=== PATIENT | male | born 2000 ===

== ENCOUNTER 2025-04-19 18:32 | Observation (INO) | payer OTHER, SELFPAY ==
[2025-04-19] VITALS (13 sets, daily range): BP systolic 97–124; BP diastolic 54–76; PULSE 56–117; RESP 12–18; TEMP 36.6; O2SAT 96–100; BMI 18.1
--- NOTE | ~2025-04-19 | CT_ITS ---
EXAMINATION: CT abdomen pelvis w con DATE: 04/19/2025 19:53 INDICATION: Constipation. Developmental delay. TECHNIQUE: Computed tomography (CT) of the abdomen and pelvis was performed with 100 cc of IV contrast intravenous contrast. Automated exposure control and iterative reconstruction technique were employed. The dose-length product was 227.66 mGy-cm. COMPARISON: None previous available. FINDINGS: Lung bases do not show any acute findings. No focal lesions of the liver and the spleen. No acute findings of the pancreas and kidneys. No evidence of small bowel obstruction. Diffuse fecal impaction of the colon. Urinary bladder is significantly distended. No focal inflammatory changes. Appendix is not distinctly visible. IMPRESSION: 1. No definite acute findings in the upper abdomen and pelvis. 2. Significant diffuse fecal impaction of the colon. Distended urinary bladder. Reviewed, dictated and finalized at location T. ATIONAL THERAPY TEACHER
--- NOTE | ~2025-04-19 | CT_ITS ---
EXAMINATION: CT brain wo con DATE: 04/19/2025 19:52 INDICATION: Seizure. TECHNIQUE: Computed tomography (CT) of the head was performed without intravenous contrast. The mA was adjusted according to patient size. Iterative reconstruction technique was employed. The dose-length product was 605.33 mGy-cm. COMPARISON: CT head dated 09/21/2022. FINDINGS: No acute intracranial bleed. Mild prominence of the lateral ventricle are noted similar in appearance to previous study. Body of the lateral ventricle measured 21 mm in transverse diameter on each side. Mildly prominent third ventricle. No midline shift. In the posterior fossa, Chiari I malformation is noted also seen on previous examination. No acute bony lesions. IMPRESSION: 1. No acute intracranial lesions. 2. 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 This finding is unchanged from prior study of 09/21/2022. Reviewed, dictated and finalized at location T. FEN HOUSE SUPERVISOR IMPRESSION: 1. No acute intracranial lesions. 2. 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 This finding is unchanged from prior study of 09/21/2022.
--- NOTE | ~2025-04-19 | MR_ITS ---
EXAMINATION: MR brain/brain stem wo con DATE: 04/20/2025 15:23 INDICATION: Seizure TECHNIQUE: Magnetic resonance imaging (MRI) of the brain and brainstem was performed without intravenous contrast. COMPARISON: Previous head CT exams from September 21, 2022, and April 19, 2025. FINDINGS: Several of the sequences are severely degraded by motion artifact. No acute ischemic event, mass or hemorrhage. Ventriculomegaly involving the lateral ventricles unchanged from the recent CT exam. The third and fourth ventricles do not appear significantly enlarged. Chiari I malformation noted with the cerebellar tonsils extending approximately 6 mm below the foramen magnum. No gross abnormalities seen in the paranasal periorbital and calvarial structures. Vascular flow voids appear patent at the skull base. Other than the Chiari 1 malformation, brainstem and cerebellum appear normal. IMPRESSION: 1. Mild ventriculomegaly similar to the previous CT exams. The fourth ventricle does not appear significantly enlarged. Query if patient has any known history of aqueductal stenosis. 2. Noncontrast exam limited as above. Reviewed, dictated and finalized at location A. PULLER
--- OUTSIDE RECORDS SUMMARY | 2025-04-19 18:34 | XMS_ITS | Encounter Summary ---
Author Organization [facility] Address [address] [place] [address] Care Team Providers Care Patient Transportation Driver Name Role Phone Kala Moran MD Primary Care Provider Unavailable Encounter Details Date Type Department Care Team (Late st Contact Info) Description 08/04/2004 Outpatient Historical [facility] [place] [address] 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
--- OUTSIDE RECORDS SUMMARY | 2025-04-19 18:34 | XMS_ITS | Clinical Summary ---
Author Organization [facility] [address] [place] Address [address] [place] [address] Care Team Providers Care Dot Net Architect Name Role Phone Kala Moran MD Primary Care Provider Unavailable Allergies Active Allergy Reactions Criticality Noted Date Comments No Known Allergies 2005 Medications LORazepam (ATIVAN) 0.5 mg tabletIndication s:Autism spectrum disorder,Dental caries Take one tab by mouth 30 mins prior to dental appointment .. 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 Autism spectrum disorder 01/29/2012 Blindness 01/26/2008 Developmental delay 01/26/2008 Short stature for age 0801/26/2008 Well child check 01/25/2008 Resolved Problems Problem Noted Date Diagnosed Date Resolved Date Hearing loss 05/02/2008 06/04/2010 Immunizations Immunization Administration Dates Next Due (ACTHIB/HIBERIX)(2 MOS-5 YRS /6 WKS-4 YRS) HAEMOPHILUS INFLUENZAE TYPE B VACCINE (HIB), PRP-T CONJUGATE, 4 DOSE, 0.5 ML IM 03/24/2002,2001,2001,06/17 (HAVRIX/VAQTA)(12 MO-18 YRS) HEPATITIS A VACCINE 0.5 ML PED/ADOL 2 DOSE, IM 12/08/2006 (INFANRIX)(6 WKS-6 YRS) DIPT HERIA, TETANUS TOXOIDS, AND ACCELLULAR PERTUSSIS VACCINE (DTAP), 0.5 ML IM 12/08/2006,12/11/2002,2001,08/16,2001 (IPOL)(6 WKS AND UP) POLIOVI [place]T VACCINE, INACTIVATED (IPV), 3 DOSE, SUBCUT OR IM 12/08/2006,12/11/2002,2001,08/16,2001 (M-M-R II/PRIORIX)(12 MO UP) MEASLES, MUMPS AND RUBELLA VIRUS VACCINE, 0.5 ML IM/SUBCUT 12/08/2006,03/24/2002 (RECOMBIVAX HB/ENGERIX-B)(0- 19 YRS) HEPATITIS B VACCINE 5 MCG/0.5 ML OR 10 MCG/0.5 ML PED OR ADOL 3 DOSE (PF), IM 12/11/2002,2001,2001 (VARIVAX)(12 MOS UP)VARICELL A VIRUS VACCINE (PF) 0.5 ML, SUB CUT 03/24/2002 Hepatitis A Vaccine Ped Adol IM 2 Dose VF 01/25/2008 Meningococcal A Conjugate Va ccine IM VFC 01/14/2015 Meningococcal A Conjugate Vaccine IM 12/31/2017 Pneumococcal 7-valent conjug ate vaccine IM 03/24/2002 Tdap Vaccine > 7 Yo IM VFC 01/14/2015 Family History Medical History Relation Name Comments Healthy Brother Healthy Father Hypertension Maternal Grandfather Cancer Maternal Grandmother Healthy Maternal Grandmother Healthy Mother Liver Cancer Other 1 matgrtgma not Etho relate d Breast Cancer Other 2 matgrtgma Breast Cancer Other 3 matgrtaunt Relation Name Status Comments Brother Alive Father Alive Maternal Grandfather Alive Maternal Grandmother Alive Mother Alive Other 1 matgrtgma Other 2 matgrtgma Alive Other 3 matgrtaunt Alive Paternal Grandfather Alive Paternal Grandmother Alive Social History Tobacco Use Types Packs/Day Years Used Date Smoking Tobacco: Never Smokeless Tobacco: Never Alcohol Use Standard Drinks/Week Comments Not Asked 0 (1 standard drink = 0.6 oz pur e alcohol) Sex and Gender Information Value Date Recorded Sex Assigned at Not on file 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 Gender Identity Not on file Sexual Orientation Not on file Occupation Industry Job Start Date Job End Date Not on file Not on file Not on file Not on file Last Filed Vital Signs Vital Sign Reading Time Taken Comments Blood Pressure 112/54 09/08/2016 9:45 AM CDT Pulse 87 12/31/2017 2:53 PM CDT Temperature 37.2 C (98.9 F) 12/31/2017 2:53 PM CDT Respiratory Rate - - Oxygen Saturation 79% 12/31/2017 2:53 PM CDT cold hands Inhaled Oxygen Concentration - - Weight 33.6 kg (74 lb) 12/31/2017 2:53 PM CDT Height 145.4 cm (4' 9.25) 12/31/2017 2:53 PM CD T Body Mass Index 15.87 12/31/2017 2:53 PM CDT Plan of Treatment Health Maintenance Due Date Last Done Comments HPV VACCINES (1 - Male 3-dos e series) 02/17/2016 INFLUENZA VACCINE (#1) 2024 DTAP/TDAP/TD VACCINES (7 - T d or Tdap) 01/14/2025 01/14/2015, 12/08/2006, 12/11/2002, Additional history exists HEPATITIS B VACCINES Completed 12/11/2002, 2001, 2001 Insurance [employer] Care Teams Dot Net Architect Relationship Specialty Start Date End Date Kala Moran MD PCP - General Family Practice 01/14/15
--- OUTSIDE RECORDS SUMMARY | 2025-04-19 18:34 | XMS_ITS | Encounter Summary ---
Author Organization [facility] Address 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
--- OUTSIDE RECORDS SUMMARY | 2025-04-19 18:34 | XMS_ITS | Encounter Summary ---
Author Organization [facility] Address 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
--- OUTSIDE RECORDS SUMMARY | 2025-04-19 18:34 | XMS_ITS | Encounter Summary ---
Author Organization [facility] Address 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
--- OUTSIDE RECORDS SUMMARY | 2025-04-19 18:34 | XMS_ITS | Encounter Summary ---
Author Organization [facility] Address [address] [place] [address] Care Team Providers Care Software Support Engineer Name Role Phone Kala Moran MD Primary Care Provider Unavailable Encounter Details Date Type Department Care Team (Late st Contact Info) Description 07/03/2004 Outpatient Historical [facility] Pediatric[facility] [place] [address] [facility] [place] [phone] Oxana Kapoor MD [address] [phone] Social History Tobacco Use Types Packs/Day Years Used Date Smoking Tobacco: Never Assessed Sex and Gender Information Value Date Recorded Sex Assigned at Not on file 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
--- OUTSIDE RECORDS SUMMARY | 2025-04-19 18:34 | XMS_ITS | Encounter Summary ---
Author Organization [facility] Address 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
--- OUTSIDE RECORDS SUMMARY | 2025-04-19 18:34 | XMS_ITS | Encounter Summary ---
Author Organization [facility] Address [address] [place] [address] Care Team Providers Care Rn Family Name Role Phone Kala Moran MD Primary Care Provider Unavailable Encounter Details Date Type Department Care Team (Late st Contact Info) Description 12/08/2006 Outpatient Historical [facility] Pediatrics [place] [address] [facility] [place] [phone] Oxana Kapoor MD [address] [phone] Social History Tobacco Use Types Packs/Day Years Used Date Smoking Tobacco: Never Assessed Sex and Gender Information Value Date Recorded Sex Assigned at Not on file 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 Gender Identity Not on file Sexual Orientation Not on file documented as of this encounter Plan of Treatment Not on file documented as of this encounter Procedures Procedure Name Priority Date/Time Associated Diagnosis Comments CHG POLIOVIRUS IPV VFC 7 12:00 AM CDT CHG DTAP VACCINE <7 YO IM VFC 12/08/2006 12:00 AM CDT CHG HEPATITIS A VACCINE PED ADOL IM 2 DOSE VFC 12/08/2006 12:00 AM CDT documented in this encounter Visit Diagnoses Not on filedocumented in this encounter Care Teams Rn Family Relationship Specialty Start Date End Date Kala Moran MD PCP - General Family Practice 01/14/15 documented as of this encounter
--- OUTSIDE RECORDS SUMMARY | 2025-04-19 18:34 | XMS_ITS | Clinical Summary ---
Author Organization [facility] Address [address] [place] [address] Care Team Providers Care Patent Searcher Name Role Phone Lord Dennys MD, Josr Vega Primary Care Provider Source Comments [facility],non-owned Affiliates and Associated Physician Practices is amultiple site organization consisting of ambulatory clinics and hospital sitesin [place], [place], [place] and [place]. This disclosure is being madepursuant to the Care Everywhere program and may not contain all information available regarding this patient. Last updated 18.[facility] Social History Tobacco Use Types Packs/Day Years Used Date Smoking Tobacco: Never Assessed Sex and Gender Information Value Date Recorded Sex Assigned at Not on file Legal Sex Male 5:44 AM VAULT PERSON Gender Identity Not on file Sexual Orientation Not on file Plan of Treatment Health Maintenance Due Date Last Done Comments HIV SCREENING 02/17/2016 HPV VACCINE (1 - Male 3-dose series) 02/17/2016 HEPATITIS C SCREENING 02/12/2019 DTAP/TDAP/TD VACCINES (1 - Tdap) 02/17/2020 HEPATITIS B VACCINE (1 of 3 - 19+ 3-dose series) 02/17/2020 DEPRESSION SCREENING 05/31/2024 COVID-19 VACCINE ( - 2023-2 5 season) 2025 INFLUENZA VACCINE (#1) 2025 ZOSTER VACCINE (1 of 2) 2051 HIB VACCINE Aged Out No longer eligi ble based on patient's age to complete this topic MENINGOCOCCAL (Group B) VACC INE SHARED DECISION-MAKING Aged Out No longer eligibl e based on patient's age to complete this topic MENINGOCOCCAL GROUPS A/C/Y/W VACCINE Aged Out No longer eligible b ased on patient's age to complete this topic PNEUMOCOCCAL VACCINE Aged Out No long er eligible based on patient's age to complete this topic Care Teams Patent Searcher Relationship Specialty Start Date End Date Josr Saini Jr., MD PCP - General Family Medicine 05/17/13
--- OUTSIDE RECORDS SUMMARY | 2025-04-19 18:34 | XMS_ITS | Encounter Summary ---
Author Organization [facility] Address 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 Gender Identity Not on file Sexual Orientation Not on file documented as of this encounter Plan of Treatment Not on file documented as of this encounter Procedures Procedure Name Priority Date/Time Associated Diagnosis Comments SOMATOMEDIN C Routine 10/07/2004 4:10 PM CDT TSH Routine 10/07/2004 4:10 PM CDT T4 FREE Routine 10/07/2004 4:10 PM CDT CORTISOL LEVEL Routine 10/07/2004 4:10 PM CDT COMPREHENSIVE METABOLIC PANEL Routine 10/07/2004 4:10 PM CDT documented in this encounter Results * SOMATOMEDIN C (10/07/2004 4:10 PM CDT) SOMATOMEDIN C 33 17 - 248 ng/mL INTERFACE SYSTEM Comment: Lab test performed by: [employer] [address] [place] [address] YU CHURCH M.D., PHD. 10/07/2004 4:10 PM CDT us Constant Voulgaropoulos CHEMISTRY ORDERABLES Fin al Result Performing Organization Address City/[facility] de Phone Number INTERFACE SYSTEM Refer to clinic/hospital department * CORTISOL LEVEL (10/07/2004 4:10 PM CDT) CORTISOL LEVEL 17.2 ug/dL INTER FACE SYSTEM Comment: Cortisol Reference Range: 7 - 10 AM: 6.2 - 19.4 ug/dL 4 - 8 PM: 2.3 - 12.3 ug/dL 10/07/2004 4:10 PM CDT us Constant Voulgaropoulos CHEMISTRY ORDERABLES Fin al Result Performing Organization Address City/[facility] Phone Number INTERFACE SYSTEM Refer to clinic/hospital department * TSH (10/07/2004 4:10 PM CDT) TSH 2.05 0.27 - 4.20 uU/mL INTERFACE SYSTEM 10/07/2004 4:10 PM CDT us Constant Voulgaropoulos CHEMISTRY ORDERABLES Fin al Result Performing Organization Address City/[facility] de Phone Number INTERFACE SYSTEM Refer to clinic/hospital department * T4 FREE (10/07/2004 4:10 PM CDT) T4 FREE 1.4 0.9 - 1.7 ng/dL INTERFACE SYSTEM 10/07/2004 4:10 PM CDT us Constant Voulgaropoulos CHEMISTRY ORDERABLES Fin al Result Performing Organization Address City/[facility] Co de Phone Number INTERFACE SYSTEM Refer to clinic/hospital department * (ABNORMAL) COMPREHENSIVE METABOLIC PANEL (10/07/2004 4:10 PM CDT) GLUCOSE 91 60 - 110 mg/dL INTERFACE SYSTEM CREATININE 0.4 0.2 - 0.7 mg/dL INTERFACE SYSTEM CALCIUM 9.3 8.8 - 10.8 mg/dL INTERFACE SYSTEM AST 41(H) 12 - 38 U/L INTERFACE SYSTEM ALKALINE PHOSPHATASE 162 40 - 390 U/L INTERFACE SYSTEM BUN 14 6 - 20 mg/dL INTERFACE SYSTEM BILIRUBIN TOTAL 0.1(L) 0.2 - 1.0 mg/dL INTERFACE SYSTEM ALBUMIN 4.1 3.8 - 5.4 g/dL INTERFACE SYSTEM TOTAL PROTEIN 7.4 6.3 - 8.6 g/dL INTERFACE SYSTEM ALT 13 0 - 41 U/L INTERFACE SYSTEM SODIUM 138 135 - 145 mmol/L INTERFACE SYSTEM POTASSIUM 4.6 3.3 - 4.6 mmol/L INTERFACE SYSTEM CHLORIDE 101 96 - 108 mmol/L INTERFACE SYSTEM CO2 26 22 - 30 mmol/L INTERFACE SYSTEM 10/07/2004 4:10 PM CDT us Harry Maki CHEMISTRY ORDERABLES Fin al Result INTERFACE SYSTEM Refer to clinic/hospital department documented in this encounter Visit Diagnoses Diagnosis 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
--- OUTSIDE RECORDS SUMMARY | 2025-04-19 18:34 | XMS_ITS | Encounter Summary ---
Author Organization [facility] Address [address] [place] [address] Care Team Providers Care Tin Tie Machine Operator Automatic Name Role Phone Kala Moran MD Primary Care Provider Unavailable Encounter Details Date Type Department Care Team (Late st Contact Info) Description 12/08/2006 Outpatient Historical [facility] Pediatric[facility] [place] [address] [facility] [place] [address] [place] [phone] Oxana Kapoor MD [address] [phone] Social History Tobacco Use Types Packs/Day Years Used Date Smoking Tobacco: Never Assessed Sex and Gender Information Value Date Recorded Sex Assigned at Not on file 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
[2025-04-19 18:59] LABS: Hematocrit 44.0 % (42.0-52.0); Hemoglobin 14.4 g/dL (14.0-18.0); Immature Granulocyte Percent A 0.3 % (0-0.5); Lymphocytes Absolute Auto 4.54 K/mm3 (0.9-3.2); Mean Corpuscular HGB Conc 32.7 g/dl (32-36); Mean Corpuscular Hemoglobin 30.1 pg (26-34); Mean Corpuscular Volume 92.1 fl (80-100); Nucleated Red Blood Cells Absolute Auto 0.000 K/mm3 (0.0-0.012); Nucleated Red Blood Cells Perc 0.0 % (0.0-0.2); Platelet Count Result 405 k/mm3 (150-375); Red Blood Count 4.78 M/mm3 (4.6-6.20); White Blood Count 9.0 K/mm3 (4.5-10.0)
--- NOTE | 2025-04-19 19:10 | ECG_ITS ---
Test Date: 2025-04-19 19:21:09 Measurements Intervals [place] Rate: 68 P: 74 MS: 133 QRS: 126 QRSD: 90 T: 59 QT: 385 QTc: 411 Interpretive Statements SINUS RHYTHM MARKED RIGHT AXIS DEVIATION [QRS AXIS > 100] BORDERLINE ECG No previous ECG available for comparison Electronically Signed On 04-20-2025 07:53:54 INSURANCE CLAIMS PROCESSOR by Dariel Strong M.D.
[2025-04-19 19:11] LABS: Alanine Aminotransferase 30 U/L (6-50); Albumin Level 5.4 g/dL (3.5-5.1); Alkaline Phosphatase 61 U/L (38-126); Anion Gap 27 mmol/L (4-12); Aspartate Amino Transferase 38 U/L (17-59); Bilirubin,Total 0.5 mg/dL (0.2-1.3); Blood Urea Nitrogen 13 mg/dL (9-20); Calcium 9.4 mg/dL (8.4-10.2); Carbon Dioxide 13 mmol/L (22-30); Chloride 99 mmol/L (98-107); Estimated Glomerular Filt Rate > 60; Glucose 179 mg/dL (65-110); Magnesium 2.5 mg/dL (1.6-2.3); Potassium 3.6 mmol/L (3.4-5.0); Sodium 139 mmol/L (137-145); Total Protein 9.0 g/dL (6.3-8.2)
[2025-04-19 19:24] LABS: INR 1.1; Partial Thromboplastin Time 26.9 Seconds (22.3-36.8); Prothrombin Time 14.2 Seconds (11.1-14.7)
--- NOTE | 2025-04-19 19:31 | ED.SEIZURE ---
HPI - Seizure General Chief Complaint: Seizure Stated Complaint: seizure Time Seen by Provider: 04/19/25 19:03 History of Present Illness HPI Narrative: 25-year-old male with a past medical history of septo-optic dysplasia and developmental delay presenting to the emergency department today after witnessed seizure event. Patient has a history of seizure 1 time prior about 2 years ago presented to the emergency department and placed on antiseizure medications and encouraged to follow-up with neurology but this did not happen. Patient does not have a neurologist and family states that there have been having social situations and no insurance to see a specialist. Today patient had a witnessed seizure event where he was eating dinner with his family and then began having a choking episode of eyes rolling back and then he coughed up frequently and began shaking losing consciousness. This lasted about 2 minutes prior to becoming sleepy and seizure activity stopping. Patient was postictal not answering and being confused until he arrived to the emergency department. At baseline patient is blind and does not speak but does grunt and follow commands. Patient presently is at his baseline according to the mother who is his caregiver at bedside. No traumatic injuries or recent changes to his health aside from some constipation for 5 days. Mother states that this is usual for him and she is on multiple medications for bowel regimen. Patient is not any seizure medications at this time. No head injury or trauma. Patient does not have specialty care or neurological care. No previous formal diagnosis of epilepsy but did have an event very similar to years ago. Related Data Home Medications ?Medication ?Instructions ?Recorded ?Confirmed ?Last Taken ?Type polyethylene glycol 3350 17 17 g PO DAILY PRN constipation 04/19/25 04/19/25 Unknown History gram/dose oral powder (ClearLax) lactulose PO DAILY 04/20/25 Unknown History Allergies Allergy/AdvReac Type Severity Reaction Status Date / Time No Known Allergies Allergy Verified 04/19/25 23:40 Review of Systems Review of Systems: as reviewed above in HPI [facility] Past Medical History Medical History (Updated 04/20/25 @ 04:39 by Reynold Suresh MD) Foveal hypoplasia, optic nerve decussation defect, 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 he is disabled. Smoking status: Never smoker Alcohol intake: never Substance use: never Lack of Transportation: No Lack of Food: Never True Current Housing: I Have Housing Concerned About Future Housing: No Difficulty Paying Gas/Electric Bills: No Difficulty Paying for Meds: No Currently Unemployed: No Education: High School Diploma/GED Difficulty w/ Childcare or Family Care: No Spiritual care concerns: No Exam Narrative: GENERAL: developmentally delayed in appearance, short stature and some contractions noted in both upper and lower extremities. HEAD: [Normocephalic, atraumatic.] EYES: Blind, pupils are equal. Extraocular movements appear intact. ENT: Nares clear, no rhinorrhea or epistaxis. Mucous membranes moist. NECK: Supple. CHEST: [Clear to auscultation. No respiratory distress.] HEART: [Regular rate and rhythm]. No murmur heard. [Normal peripheral pulses.] ABDOMEN: [Soft, nondistended], [nontender], [No rigidity or guarding] EXTREMITIES: Normal range of motion. [No edema.] SKIN: Warm, dry, no rash. 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 does not speak and is blind, occasionally grunts when responding to questions. Course Vital Signs Vital signs: Vital Signs Pulse Rate 85 04/19/25 18:38 Respiratory Rate 16 04/19/25 18:38 Blood Pressure 124/76 04/19/25 18:38 Pulse Oximetry 98 04/19/25 18:38 Temperature 36.6 C 04/19/25 23:30 Pulse Rate 117 H 04/19/25 23:30 Respiratory Rate 18 04/19/25 23:30 Blood Pressure 97/57 L 04/19/25 23:30 Pulse Oximetry 97 04/19/25 23:30 Oxygen Delivery Room Air 04/19/25 19:15 MDM - Seizure MDM Narrative Medical decision making narrative: 25-year-old male with a past medical history of septo-optic dysplasia and developmental delay presenting to the emergency department today after witnessed seizure event. Patient has a history of seizure 1 time prior about 2 years ago presented to the emergency department and placed on antiseizure medications and encouraged to follow-up with neurology but this did not happen. Patient does not have a neurologist and family states that there have been having social situations and no insurance to see a specialist. Today patient had a witnessed seizure event where he was eating dinner with his family and then began having a choking episode of eyes rolling back and then he coughed up frequently and began shaking losing consciousness. This lasted about 2 minutes prior to becoming sleepy and seizure activity stopping. Patient was postictal not answering and being confused until he arrived to the emergency department. At baseline patient is blind and does not speak but does grunt and follow commands. Patient presently is at his baseline according to the mother who is his caregiver at bedside. No traumatic injuries or recent changes to his health aside from some constipation for 5 days. Mother states that this is usual for him and she is on multiple medications for bowel regimen. Patient is not any seizure medications at this time. No head injury or trauma. Patient does not have specialty care or neurological care. No previous formal diagnosis of epilepsy but did have an event very similar to years ago. Patient is saturating 98% on room air. Normal pulse and blood pressure. No tachypnea. No signs of distress. Concern for seizure disorder likely complication of his septo-optic dysplasia or new organic cause. Electrolyte deficiencies or infection also possible. Broad workup ordered this time including CT of the head CT of the abdomen pelvis given his constipation. He has a soft nontender nondistended abdomen. Lactic acid laboratory studies ordered. He was given Keppra load, fluid bolus, placed on seizure precautions. CT scan is unremarkable. Laboratory studies are unremarkable. Spoke to Dr. Beckman the neurologist on-call over the phone who accepted the patient to be seen on consultation with admission to the hospitalist. Recommendations are for obtaining an EEG and MRI with and without contrast. Patient given a dose of Keppra here. Lactic acid normalized after repeat draw. Remains stable and no longer having any seizure activity recurrence. Spoke to the family members regarding plan for admission and spoke to the hospitalist who accepted the patient to a telemetry monitored bed at this time. Medical Records Attestation: I reviewed the patient's medical records. Lab Data Attestation: I reviewed the patient's lab results. 04/19/25 18:53 04/19/25 18:53 Labs: Lab Results 04/19/25 04/19/25 04/19/25 Range/Units 18:53 20:47 21:54 WBC 9.0 (4.5-10.0) K/mm3 RBC 4.78 (4.6-6.20) M/mm3 Hgb 14.4 (14.0-18.0) g/dL Hct 44.0 (42.0-52.0) % MCV 92.1 (80-100) fl MCH 30.1 (26-34) pg MCHC 32.7 (32-36) g/dl RDW 12.1 (11.5-14.5) % Plt Count 405 H (150-375) k/mm3 MPV 8.6 (7.4-10.4) fl Immature Gran % (Auto) 0.3 (0-0.5) % Neut % (Auto) 40.4 L (45.5-73.1) % Lymph % (Auto) 50.4 H (18.3-44.2) % [place] % (Auto) 5.7 (2.6-8.5) % Eos % (Auto) 2.2 (0-4.4) % Baso % (Auto) 1.0 (0.2-1.2) % Lymph # (Auto) 4.54 H (0.9-3.2) K/mm3 [place] # (Auto) 0.5 (0.1-0.6) K/mm3 Eos # (Auto) 0.2 (0-0.3) K/mm3 Baso # (Auto) 0.1 (0.0-0.1) K/mm3 Abs Immat Gran (auto) 0.03 (0.00-0.031) K/mm3 Absolute Neuts (auto) 3.6 (1.3-6.7) K/mm3 Absolute Nucleated RBC 0.000 (0.0-0.012) K/mm3 Nucleated RBC % 0.0 (0.0-0.2) % PT 14.2 (11.1-14.7) Seconds INR 1.1 APTT 26.9 (22.3-36.8) Seconds Sodium 139 (137-145) mmol/L Potassium 3.6 (3.4-5.0) mmol/L Chloride 99 (98-107) mmol/L Carbon Dioxide 13 L (22-30) mmol/L Anion Gap 27 H (4-12) mmol/L BUN 13 (9-20) mg/dL Creatinine 0.95 (0.7-1.3) mg/dL Estim Creat Clear Calc Not Reportable Estimated GFR > 60 (59 - ) Glucose 179 H (65-110) mg/dL Lactic Acid 12.8 H* 2.1 H (0.7-2.0) mmol/L Calcium 9.4 (8.4-10.2) mg/dL Magnesium 2.5 H (1.6-2.3) mg/dL Total Bilirubin 0.5 (0.2-1.3) mg/dL AST 38 (17-59) U/L ALT 30 (6-50) U/L Alkaline Phosphatase 61 (38-126) U/L Total Protein 9.0 H (6.3-8.2) g/dL Albumin 5.4 H (3.5-5.1) g/dL TSH (Reflex) 2.020 (0.465-4.68) uIU/mL Urine Color Yellow (Yellow) Urine Appearance Clear (Clear) Urine pH 6.0 (5.0-9.0) Ur Specific [place] 1.023 (1.001-1.035) Urine Protein Negative (Negative) mg/dL Urine Glucose (UA) Negative (Negative) mg/dL Urine Ketones Negative (Negative) mg/dL Ur Blood (Man) Negative (Negative) Urine Nitrate Negative (Negative) Urine Bilirubin Negative (Negative) Urine Urobilinogen 0.2 (<2.0) mg/dL Leukocyte Esterase Rfl Negative (Negative) SHANNON/UL Imaging Data Attestation: I personally reviewed and interpreted this imaging study as follows: My impression: Impressions Head CT 04/19/25 20:00 IMPRESSION: 1. No acute intracranial lesions. 2. 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 This finding is unchanged from prior study of 09/21/2022. Abdomen/Pelvis CT 04/19/25 20:03 IMPRESSION: 1. No definite acute findings in the upper abdomen and pelvis. 2. Significant diffuse fecal impaction of the colon. Distended urinary bladder. Discharge Plan Discharge Clinical Impression: Seizure, Septo-optic dysplasia of brain Patient Disposition: Still a Patient Condition: Stable
[2025-04-19 19:39] LABS: Thyroid Stimulating Hormone Reflex 2.020 uIU/mL (0.465-4.68)
[2025-04-19] MEDS: levETIRAcetam 1000MG/NACL100ML 1,000 MG/100 ML BAG 400 MG IVPB (19:52)
[2025-04-19] MEDS: LACTATED RINGERS 1,000 ML 999 ML IV CONT (20:08)
[2025-04-19 21:05] LABS: Add Urine Microscopic? NO; Appearance Urine Clear (Clear); Glucose Urine UA Negative (Negative); Leukocyte Esterase Ur Negative LEU/UL (Negative); Nitrate Urine Negative (Negative); Specific Grav Ur 1.023 (1.001-1.035)
--- NOTE | 2025-04-19 21:23 | P.HP_ITS ---
H&P: HPI History of Present Illness Date/Time: 04/19/25 21:23 Chief Complaint: Seizure activity Narrative: This is a 25-year-old autistic male patient who has a history of septo-optic dysplasia. The patient is legally blind and noncommunicative. The mother is at the bedside of the patient. The mother stated that he had a seizure 1 time approximately 2 years ago and was placed on antiseizure medicine but ran out. Mother stated that she was having difficulty with insurance issues in finding a physician more specifically a neurologist that would take the medical card. However tonight they were eating dinner with and the patient had an episode of coughing and his eyes rolled back in his head and he began to lose consciousness. The mother stated that he is not on any medications at this time. Abdomen pelvis CT was read as a followingIMPRESSION: 1. No definite acute findings in the upper abdomen and pelvis. 2. Significant diffuse fecal impaction of the colon. Distended urinary bladder. Head CT was read as a followingIMPRESSION: 1. No acute intracranial lesions. 2. 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 This finding is unchanged from prior study of 09/21/2022. Neurology has been consulted. The patient was given a dose of Keppra in the emergency room his initial lactic was 12.8 and came down to 2.1. Blood sugar was 179 however this was after eating. Magnesium was 2.5 the patient is being admitted as observation status on the date of service of 04/19/2025 Review of Systems Review of Systems: The mother was at the bedside answering questions. The patient only grunts and shakes his head. 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 he is disabled. Smoking status: Never smoker Alcohol intake: never Substance use: never Lack of Transportation: No Lack of Food: Never True Current Housing: I Have Housing Concerned About Future Housing: No Difficulty Paying Gas/Electric Bills: No Difficulty Paying for Meds: No Currently Unemployed: No Education: High School Diploma/GED Difficulty w/ Childcare or Family Care: No Spiritual care concerns: No Meds Home Medications and Allergies Home Medications ?Medication ?Instructions ?Recorded ?Confirmed ?Type polyethylene glycol 3350 17 17 g PO DAILY PRN constipa tion 04/19/25 04/19/25 History gram/dose oral powder (ClearLax) lactulose PO DAILY 04/20/25 History Allergies Allergy/AdvReac Type Severity Reaction Status Date / Time No Known Allergies Allergy Verified 04/19/25 23:40 Vital Signs Vital Signs - 24 hr 04/19/25 18:38 Pulse Rate 85 Respiratory Rate 16 Blood Pressure 124/76 Pulse Oximetry 98 Exam Const: General: cooperative, awake, Physically active and average body habitus Other: The patient only communicates by grunting. Otherwise she is nonverbal. No s eizure activity or tremors noted at this time. HENMT: Head: normal to inspection, No palpable skull fracture present, normocephalic and atraumatic Eyes: Other: Patient did not respond to direct light Neck: Neck: normal visual inspection, full ROM and no lymphadenopathy Chest: Chest palpation & inspection: normal inspection of the chest Resp: Effort & Inspection: normal respiratory effort Auscultation: clear to auscultation bilaterally Cardio: Palpation: normal PMI Rate: regular rate Rhythm: regular rhythm Heart sounds: S1 normal heart sound present and S2 normal heart sound present Peripheral pulses: Peripheral pulses 2+ throughout GI: Inspection: normal to inspection Percussion: Yes normal to percussion Auscultation: normal bowel sounds Skin: General skin exam: normal color Lesions: no lesions Rashes: no rashes Trauma: no lacerations or abrasions Wounds: no wounds Hair: normal Nails: normal Extrem: General: normal to inspection Right upper extremity: normal to inspection and shoulder/upper arm Left upper extremity: normal to inspection and shoulder/upper arm Right lower extremity: normal to inspection Left lower extremity: normal to inspection Psych: Insight: Poor insight present (Psych) Judgement: Poor judgement present (Psych) Other: He Is calm at this time. He has severe autism H&P: Results Labs Labs: Short CBC 04/19/25 Range/Units 18:53 WBC 9.0 (4.5-10.0) K/mm3 Hgb 14.4 (14.0-18.0) g/dL Hct 44.0 (42.0-52.0) % Plt Count 405 H (150-375) k/mm3 BMP 04/19/25 18:53 Sodium 139 Potassium 3.6 Chloride 99 Carbon Dioxide 13 L BUN 13 Creatinine 0.95 Glucose 179 H Calcium 9.4 Liver Function 04/19/25 Range/Units 18:53 Total Bilirubin 0.5 (0.2-1.3) mg/dL AST 38 (17-59) U/L ALT 30 (6-50) U/L Alkaline Phosphatase 61 (38-126) U/L Albumin 5.4 H (3.5-5.1) g/dL Urine 04/19/25 Range/Units 20:47 Urine Color Yellow (Yellow) Urine Appearance Clear (Clear) Urine pH 6.0 (5.0-9.0) Ur Specific [place] 1.023 (1.001-1.035) Urine Protein Negative (Negative) mg/dL Urine Glucose (UA) Negative (Negative) mg/dL Imaging CT scan - head: Radiologist's impression: Impressions Head CT 04/19/25 20:00 IMPRESSION: 1. No acute intracranial lesions. 2. 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 This finding is unchanged from prior study of 09/21/2022. Abdomen/Pelvis CT 04/19/25 20:03 IMPRESSION: 1. No definite acute findings in the upper abdomen and pelvis. 2. Significant diffuse fecal impaction of the colon. Distended urinary bladder. Assessment and Plan Assessment and plan (1) Seizures: Code(s): R56.9 - Unspecified convulsions Status: Acute Assessment and Plan: -according to the mother the patient had a seizure approximately 2 years ago but has not had any since then. The patient had been on medication at some point however due to insurance issues and finding and neurologist, they were not able to continue with seizure medicine. -according to the mother the patient had a tonic clonic seizure while eating dinner. The patient was noted to be postictal as per mother. -neurology has been consulted. -CT scan was read as following Head CT 04/19/25 20:00 IMPRESSION: 1. No acute intracranial lesions. 2. 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 This finding is unchanged from prior study of 09/21/2022( the mother is aware of this malformation.) -EEG ordered for tomorrow. -MRI ordered for tomorrow. -p.r.n. Ativan. -may consider IV Valium if needed during a seizure. -continue with Keppra. 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 He has no optic nerve. -the patient only communicates by grunting. He has severe autism. I did get the information from his mother and she can be called at any time. Quality VTE Prophylaxis VTE prophylaxis: mechanical ordered
--- NOTE | 2025-04-19 22:49 | WPCEDHO ---
ED Hand Off Checklist All vitals saved: Y IV Site documented: Y All med administrations documented: No, melatonin to come from pharmacy, not available in ED. Triage Note Triage Note Pt to the ED with mother for 04/19/25 18:38 evaluation of a seizure. Pt as eating when he began spitting up his food, his eyes rolled back into his head and he fell over Allergies No Known Allergies Allergy (Verified 04/19/25 18:41) Family History (Last Updated 04/19/25 @ 21:35 by Ana Rosa, JEREMY) Sibling Chiari I malformation Hypertension Mother Hypertension Administered/Completed Medications Discontinued Medications Levetiracetam (Keppra Iv) 1,000 mg in 100 mls @ 400 mls/hr IVPB ONCE STA Stop: 04/19/25 19:44 Last Infusion: 04/19/25 20:07 Dose: Infused Documented By: Admin: 04/19/25 19:52 Dose: 400 mls/hr Documented By: TEREZA Lactated Ringer's (Lr - Lactated Ringers Iv) 1,000 mls @ 999 mls/hr IV CONT .Q1H1M STA Stop: 04/19/25 20:38 Last Admin: 04/19/25 20:08 Dose: 999 mls/hr Documented By: KIA Interventions/Assessments IV / Saline Lock, Insert Start: 04/19/25 18:35 Freq: Status: Active Protocol: Document 04/19/25 18:54 CMM (Rec: 04/19/25 18:54 CMM [id number]) IV Assessment Peripheral Access Right Antecubital IV Catheter Access Initiated IV Insertion Date 04/19/25 IV Insertion Time 18:54 Catheter Gauge 20 IV Insertion 1 Attempts IV Site Assessment WNL IV Care and WNL Maintenance Last Vital Signs Pulse Rate 72 04/19/25 22:24 Respiratory Rate 18 04/19/25 22:24 Pulse Oximetry 99 04/19/25 22:23 Blood Pressure 102/64 04/19/25 22:23 Blood Pressure Mean 74 04/19/25 22:23 Oxygen Delivery Room Air 04/19/25 19:15 Last Result - Abnormals Only Plt Count 405 k/mm3 (150-375) H 04/19/25 18:53 Neut % (Auto) 40.4 % (45.5-73.1) L 04/19/25 18:53 Lymph % (Auto) 50.4 % (18.3-44.2) H 04/19/25 18:53 Lymph # (Auto) 4.54 K/mm3 (0.9-3.2) H 04/19/25 18:53 Carbon Dioxide 13 mmol/L (22-30) L 04/19/25 18:53 Anion Gap 27 mmol/L (4-12) H 04/19/25 18:53 Glucose 179 mg/dL (65-110) H 04/19/25 18:53 Lactic Acid 12.8 mmol/L (0.7-2.0) H* 04/19/25 18:53 Magnesium 2.5 mg/dL (1.6-2.3) H 04/19/25 18:53 Total Protein 9.0 g/dL (6.3-8.2) H 04/19/25 18:53 Albumin 5.4 g/dL (3.5-5.1) H 04/19/25 18:53
[2025-04-20] VITALS (8 sets, daily range): BP systolic 94–114; BP diastolic 50–68; PULSE 47–68; RESP 14–76; TEMP 36–36.5; O2SAT 98–99
[2025-04-20] MEDS: levETIRAcetam 500MG/NACL 100ML 500 MG/100 ML BAG 400 MG IVPB (00:52)
--- NOTE | 2025-04-20 07:55 | P.PNIM_ITS ---
Progress Note: A&P Assessment and Plan (1) Seizures: Code(s): R56.9 - Unspecified convulsions Status: Acute Assessment and Plan: * Head CT: No acute intracranial lesions. 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 This finding is unchanged from prior study of 09/21/2022( the mother is aware of this malformation.) * according to the mother the patient had a seizure approximately 2 years ago but has not had any since then. The patient had been on medication at some point however due to insurance issues and finding and neurologist, they were not able to continue with seizure medicine. * according to the mother the patient had a tonic clonic seizure while eating dinner. The patient was noted to be postictal as per mother. * p.r.n. Ativan. * may consider IV Valium if needed during a seizure. * continue with Keppra * Neuro consult pending * EEG, MRI pending (2) Foveal hypoplasia, optic nerve decussation defect, and anterior segment dysgenesis syndrome: Code(s): Q87.89 - Other specified congenital malformation syndromes, not elsewhere classified; Q11.2 - Microphthalmos; Q07.8 - Other specified congenital malformations of nervous system; Q13.89 - Other congenital malformations of anterior segment of eye Status: Acute Assessment and Plan: * the patient is legally blind - He has no optic nerve * the patient only communicates by grunting * He has severe autism * Information from his mother and she can be called at any time Subjective Date/time seen: 04/20/25 07:55 Interval history: 25-year-old autistic male patient who has a history of septo-optic dysplasia. The patient is legally blind and noncommunicative. The mother is at the bedside of the patient. The mother stated that he had a seizure 1 time approximately 2 years ago and was placed on antiseizure medicine but ran out. 04/20/2025 No acute overnight events. Patient examined in bed, accompanied by mother who was at bedside. EEG completed, results pending. Brain MRI ordered and pending. Neurology consult pending. Review of Systems 2 Review of Systems: The mother was at the bedside answering questions. The patient only grunts and shakes his head. ROS unobtainable: Yes unobtainable due to medical condition Exam Const: General: cooperative, awake, Physically active and average body habitus Nutritional Appearance: average body habitus Other: The patient only communicates by grunting. Otherwise he is nonverbal. No seizure activity or tremors noted at this time. HENMT: Head: normal to inspection, No palpable skull fracture present, normocephalic and atraumatic Eyes: Other: Patient did not respond to direct light Neck: Neck: normal visual inspection, full ROM and no lymphadenopathy Chest: Chest palpation & inspection: normal inspection of the chest Resp: Effort & Inspection: normal respiratory effort Auscultation: clear to auscultation bilaterally Cardio: Palpation: normal PMI Rate: regular rate Rhythm: regular rhythm Heart sounds: S1 normal heart sound present and S2 normal heart sound present Peripheral pulses: Peripheral pulses 2+ throughout GI: Inspection: normal to inspection Auscultation: normal bowel sounds Skin: General skin exam: normal color Lesions: no lesions Rashes: no rashes Trauma: no lacerations or abrasions Wounds: no wounds Hair: normal Nails: normal Extrem: General: normal to inspection Right upper extremity: normal to inspection and shoulder/upper arm Left upper extremity: normal to inspection and shoulder/upper arm Right lower extremity: normal to inspection Left lower extremity: normal to inspection Psych: Insight: Poor insight present (Psych) Judgement: Poor judgement present (Psych) Other: He Is calm at this time. He has severe autism Objective Data Vital Signs Vital Signs: Vital Signs - 24 hr 04/19/25 18:38 04/19/25 19:15 04/19/25 20:38 Temperature Pulse Rate 85 73 Respiratory Rate 16 18 Blood Pressure 124/76 Pulse Oximetry 98 Oxygen Delivery Room Air 04/19/25 20:52 04/19/25 21:00 04/19/25 21:18 Temperature Pulse Rate 67 56 L 87 Respiratory Rate 17 12 16 Blood Pressure 97/54 L Pulse Oximetry 100 98 96 Oxygen Delivery 04/19/25 21:43 04/19/25 21:45 04/19/25 21:46 Temperature Pulse Rate 72 72 88 Respiratory Rate 17 17 13 Blood Pressure 98/63 L Pulse Oximetry 99 Oxygen Delivery 04/19/25 22:01 04/19/25 22:02 04/19/25 22:23 Temperature Pulse Rate 66 60 64 Respiratory Rate 17 15 18 Blood Pressure 98/60 L 102/64 Pulse Oximetry 99 Oxygen Delivery 04/19/25 22:24 04/19/25 23:30 04/20/25 04:00 Temperature 97.8 F Pulse Rate 72 117 H 47 L Respiratory Rate 18 18 Blood Pressure 97/57 L Pulse Oximetry 97 Oxygen Delivery 04/20/25 04:53 04/20/25 05:11 Temperature 96.8 F L Pulse Rate 68 Respiratory Rate 18 Blood Pressure 94/68 L Pulse Oximetry 98 Oxygen Delivery Intake/Output Intake/Output: Intake & Output 04/17/25 04/18/25 04/19/25 04/20/25 23:59 23:59 23:59 23:59 Intake Total 1100 0 Output Total 0 Balance 1100 0 Meds/Results Medications: Active Medications Generic Name Dose Route Start Last Admin Trade Name Freq PRN Reason Stop Dose Admin Acetaminophen 650 mg 04/19/25 21:17 Acetaminophen 325 Mg Tablet PO Q4H PRN Mild Pain (1-3) or Fever Lorazepam 0.5 mg 04/20/25 00:12 Lorazepam (*Crx) 0.5 Mg Tablet PO Q6H PRN Anxiety Melatonin 5 mg 04/19/25 21:35 04/20/25 00:51 Melatonin 5 Mg Tablet PO Not Given HS JAH Ondansetron HCl 4 mg 04/19/25 21:17 Ondansetron Inj 4 Mg/2 Ml Vial IV PUSH Q4H PRN Nausea Polyethylene Glycol 17 gm 04/20/25 00:12 Polyethylene Glycol 3350 17 Gm Powd.Pack PO DAILY PRN Constipation Radiology Results: ITS Impressions Head CT 04/19/25 20:00 IMPRESSION: 1. No acute intracranial lesions. 2. 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 This finding is unchanged from prior study of 09/21/2022. Abdomen/Pelvis CT 04/19/25 20:03 IMPRESSION: 1. No definite acute findings in the upper abdomen and pelvis. 2. Significant diffuse fecal impaction of the colon. Distended urinary bladder. Labs Labs: Laboratory Results - last 24 hr 04/19/25 04/19/25 04/19/25 18:53 20:47 21:54 WBC 9.0 RBC 4.78 Hgb 14.4 Hct 44.0 MCV 92.1 MCH 30.1 MCHC 32.7 RDW 12.1 Plt Count 405 H MPV 8.6 Immature Gran % (Auto) 0.3 Neut % (Auto) 40.4 L Lymph % (Auto) 50.4 H [place] % (Auto) 5.7 Eos % (Auto) 2.2 Baso % (Auto) 1.0 Lymph # (Auto) 4.54 H [place] # (Auto) 0.5 Eos # (Auto) 0.2 Baso # (Auto) 0.1 Abs Immat Gran (auto) 0.03 Absolute Neuts (auto) 3.6 Absolute Nucleated RBC 0.000 Nucleated RBC % 0.0 PT 14.2 INR 1.1 APTT 26.9 Sodium 139 Potassium 3.6 Chloride 99 Carbon Dioxide 13 L Anion Gap 27 H BUN 13 Creatinine 0.95 Estim Creat Clear Calc Not Reportable Estimated GFR > 60 Glucose 179 H Lactic Acid 12.8 H* 2.1 H Calcium 9.4 Magnesium 2.5 H Total Bilirubin 0.5 AST 38 ALT 30 Alkaline Phosphatase 61 Total Protein 9.0 H Albumin 5.4 H TSH (Reflex) 2.020 Urine Color Yellow Urine Appearance Clear Urine pH 6.0 Ur Specific Pala 1.023 Urine Protein Negative Urine Glucose (UA) Negative Urine Ketones Negative Ur Blood (Man) Negative Urine Nitrate Negative Urine Bilirubin Negative Urine Urobilinogen 0.2 Leukocyte Esterase Rfl Negative Quality VTE Prophylaxis VTE prophylaxis: mechanical ordered
[2025-04-20] MEDS: LORazepam (*CRX) 0.5 MG TABLET PO (11:30)
[2025-04-20 14:07] LABS: Hematocrit 37.6 % (42.0-52.0); Hemoglobin 12.3 g/dL (14.0-18.0); Immature Granulocyte Percent A 0.2 % (0-0.5); Lymphocytes Absolute Auto 1.71 K/mm3 (0.9-3.2); Mean Corpuscular HGB Conc 32.7 g/dl (32-36); Mean Corpuscular Hemoglobin 30.0 pg (26-34); Mean Corpuscular Volume 91.7 fl (80-100); Nucleated Red Blood Cells Absolute Auto 0.000 K/mm3 (0.0-0.012); Nucleated Red Blood Cells Perc 0.0 % (0.0-0.2); Platelet Count Result 275 k/mm3 (150-375); Red Blood Count 4.10 M/mm3 (4.6-6.20); White Blood Count 4.7 K/mm3 (4.5-10.0)
[2025-04-20 14:16] LABS: Alanine Aminotransferase 11 U/L (6-50); Albumin Level 4.1 g/dL (3.5-5.1); Alkaline Phosphatase 50 U/L (38-126); Anion Gap 7 mmol/L (4-12); Aspartate Amino Transferase 29 U/L (17-59); Bilirubin,Total 0.4 mg/dL (0.2-1.3); Blood Urea Nitrogen 12 mg/dL (9-20); Calcium 9.0 mg/dL (8.4-10.2); Carbon Dioxide 25 mmol/L (22-30); Chloride 105 mmol/L (98-107); Estimated Glomerular Filt Rate > 60; Glucose 78 mg/dL (65-110); Potassium 4.0 mmol/L (3.4-5.0); Sodium 137 mmol/L (137-145); Total Protein 7.0 g/dL (6.3-8.2)
[2025-04-21] VITALS: PULSE 53
[2025-04-21] MEDS: levETIRAcetam ORAL SOL 500 MG/5 ML UDC BY MOUTH ×3 (00:27→10:50)
[2025-04-21 04:00] VITALS: PULSE 56
[2025-04-21 05:44] VITALS: BP 81/42; PULSE 84; RESP 17; TEMP 36.6; O2SAT 96
[2025-04-21 07:47] LABS: Hematocrit 37.5 % (42.0-52.0); Hemoglobin 12.4 g/dL (14.0-18.0); Immature Granulocyte Percent A 0.2 % (0-0.5); Lymphocytes Absolute Auto 1.72 K/mm3 (0.9-3.2); Mean Corpuscular HGB Conc 33.1 g/dl (32-36); Mean Corpuscular Hemoglobin 30.2 pg (26-34); Mean Corpuscular Volume 91.2 fl (80-100); Nucleated Red Blood Cells Absolute Auto 0.000 K/mm3 (0.0-0.012); Nucleated Red Blood Cells Perc 0.0 % (0.0-0.2); Platelet Count Result 278 k/mm3 (150-375); Red Blood Count 4.11 M/mm3 (4.6-6.20); White Blood Count 4.6 K/mm3 (4.5-10.0)
[2025-04-21 08:00] VITALS: PULSE 59
[2025-04-21 08:09] LABS: Alanine Aminotransferase 11 U/L (6-50); Albumin Level 4.2 g/dL (3.5-5.1); Alkaline Phosphatase 53 U/L (38-126); Anion Gap 12 mmol/L (4-12); Aspartate Amino Transferase 27 U/L (17-59); Bilirubin,Total 0.6 mg/dL (0.2-1.3); Blood Urea Nitrogen 14 mg/dL (9-20); Calcium 9.1 mg/dL (8.4-10.2); Carbon Dioxide 22 mmol/L (22-30); Chloride 103 mmol/L (98-107); Estimated Glomerular Filt Rate > 60; Glucose 56 mg/dL (65-110); Potassium 3.9 mmol/L (3.4-5.0); Sodium 137 mmol/L (137-145); Total Protein 7.1 g/dL (6.3-8.2)
--- NOTE | 2025-04-21 08:56 | PC.NURSE ---
This nurse was told by night nurse that IV was pulled out of hand from pt being agitated. When this nurse and orientee went into room IV access was still taped on hand but catheter was sticking out of skin. This nurse called [place] to update him on status of no iv access and told this nurse that we do not need to stick pt at this time. Monitoring pt at this time.
[2025-04-21 12:00] VITALS: PULSE 48
--- NOTE | 2025-04-21 13:05 | WPDNEUROLOGY ---
Neurology EEG Report General Information Date of Study: 04/20/25 TEST Electroencephalogram DIAGNOSIS static encephalopathy and new onset seizures CONDITION OF RECORDING bedside according EEG NUMBER [id number] CLINICAL HISTORY history of septo optic dysplasia. The patient is a nonverbal and has had a witnessed seizure by the family. . His eyes rolled back and he was breathing funny like he was having a hard time breathing. It lasted for 10 minutes and then he passed out. His had a seizure 2 years ago while he was at school. EEG DESCRIPTION The background activity consists of mixed frequency predominantly theta and beta activity. Stage I and 2 sleep recorded. Vertex waves and sleep spindles were seen. Frontal intermittent rhythmic delta activity was seen frequently. No focal abnormalities were seen. Hyperventilation or photic stimulation were not performed. IMPRESSION This is an abnormal EEG due to presence of moderate diffuse background slowing however no focal or paroxysmal epileptiform abnormality was seen.
--- NOTE | 2025-04-21 13:45 | PM.DS ---
DS: Admitting Diagnosis Discharge Date 04/21/25 Admitting Diagnosis Seizure DS: Discharge Diagnosis Discharge Diagnosis (1) Seizures: Code(s): R56.9 - Unspecified convulsions Status: Acute Assessment and Plan: -according to the mother the patient had a seizure approximately 2 years ago but has not had any since then. The patient had been on medication at some point however due to insurance issues and finding and neurologist, they were not able to continue with seizure medicine. -according to the mother the patient had a tonic clonic seizure while eating dinner. The patient was noted to be postictal as per mother. -neurology has been consulted. -CT scan was read as following Head CT 04/19/25 20:00 IMPRESSION: 1. No acute intracranial lesions. 2. 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 This finding is unchanged from prior study of 09/21/2022( the mother is aware of this malformation.) -EEG ordered for tomorrow. -MRI ordered for tomorrow. -p.r.n. Ativan. -may consider IV Valium if needed during a seizure. -continue with Keppra. 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 He has no optic nerve. -the patient only communicates by grunting. He has severe autism. I did get the information from his mother and she can be called at any time. DS: Summary Hospital Course Reason for hospitalization: seizure Hospital Course: per HPI: This is a 25-year-old autistic male patient who has a history of septo-optic dysplasia. The patient is legally blind and noncommunicative. The mother is at the bedside of the patient. The mother stated that he had a seizure 1 time approximately 2 years ago and was placed on antiseizure medicine but ran out. Mother stated that she was having difficulty with insurance issues in finding a physician more specifically a neurologist that would take the medical card. However tonight they were eating dinner with and the patient had an episode of coughing and his eyes rolled back in his head and he began to lose consciousness. The mother stated that he is not on any medications at this time. Abdomen pelvis CT was read as a followingIMPRESSION: 1. No definite acute findings in the upper abdomen and pelvis. 2. Significant diffuse fecal impaction of the colon. Distended urinary bladder. Head CT was read as a followingIMPRESSION: 1. No acute intracranial lesions. 2. 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 This finding is unchanged from prior study of 09/21/2022. Neurology has been consulted. The patient was given a dose of Keppra in the emergency room his initial lactic was 12.8 and came down to 2.1. Blood sugar was 179 however this was after eating. Magnesium was 2.5 the patient is being admitted as observation status on the date of service of 04/19/2025 Hospital course: Brain will showed jugular medically similar to previous CT exams, 4th ventricle does not appear to be significantly enlarged, limited by motion artifact. No acute ischemic event mass or hemorrhage. EEG ordered, showed presence of moderate diffuse background slowing however no focal or paroxysmal epileptiform abnormality seen. Neurology consulted - I spoke with Dr. Beckman of Neurology who agrees that patient is stable for discharge on Keppra 500mg BID with appropriate followup with neurology in the outpt setting. Throughout hospitalization, patient did not have any repeat seizures and was otherwise hemodynamically stable. Vitals and blood work remained stable. Given unremarkable imaging findings, stable blood work and stability on antiepileptics at this time, patient is stable for discharge. Time Spent with Patient Time attestation: Total time spent providing and/or coordinating discharge services: 28 Exam Const: General: cooperative, awake, Physically active and average body habitus Nutritional Appearance: average body habitus Other: The patient only communicates by grunting. Otherwise he is nonverbal. No seizure activity or tremors noted at this time. HENMT: Head: normal to inspection, No palpable skull fracture present, normocephalic and atraumatic Eyes: Other: Patient did not respond to direct light Neck: Neck: normal visual inspection, full ROM and no lymphadenopathy Chest: Chest palpation & inspection: normal inspection of the chest Resp: Effort & Inspection: normal respiratory effort Auscultation: clear to auscultation bilaterally Cardio: Palpation: normal PMI Rate: regular rate Rhythm: regular rhythm Heart sounds: S1 normal heart sound present and S2 normal heart sound present Peripheral pulses: Peripheral pulses 2+ throughout GI: Inspection: normal to inspection Auscultation: normal bowel sounds Skin: General skin exam: normal color Lesions: no lesions Rashes: no rashes Trauma: no lacerations or abrasions Wounds: no wounds Hair: normal Nails: normal Extrem: General: normal to inspection Right upper extremity: normal to inspection and shoulder/upper arm Left upper extremity: normal to inspection and shoulder/upper arm Right lower extremity: normal to inspection Left lower extremity: normal to inspection Psych: Insight: Poor insight present (Psych) Judgement: Poor judgement present (Psych) Other: He Is calm at this time. He has severe autism DS: Data Data Completed and Pending Labs on day of discharge: Labs from last 24 hours 04/21/25 04/21/25 04/20/25 08:55 07:38 13:48 WBC 4.6 4.7 RBC 4.11 L 4.10 L Hgb 12.4 L 12.3 L Hct 37.5 L 37.6 L MCV 91.2 91.7 MCH 30.2 30.0 MCHC 33.1 32.7 RDW 12.1 12.3 Plt Count 278 275 MPV 8.6 8.8 Immature Gran % (Auto) 0.2 0.2 Neut % (Auto) 52.3 53.0 Lymph % (Auto) 37.3 36.7 [place] % (Auto) 5.9 6.0 Eos % (Auto) 3.0 2.8 Baso % (Auto) 1.3 H 1.3 H Lymph # (Auto) 1.72 1.71 [place] # (Auto) 0.3 0.3 Eos # (Auto) 0.1 0.1 Baso # (Auto) 0.1 0.1 Abs Immat Gran (auto) 0.01 0.01 Absolute Neuts (auto) 2.4 2.5 Absolute Nucleated RBC 0.000 0.000 Nucleated RBC % 0.0 0.0 Sodium 137 137 Potassium 3.9 4.0 Chloride 103 105 Carbon Dioxide 22 25 Anion Gap 12 7 BUN 14 12 Creatinine 0.87 0.84 Estim Creat Clear Calc Not Reportable Not Reportable Estimated GFR > 60 > 60 Glucose 56 L* 78 POC Capillary Glucose 76 Lactic Acid 1.1 Calcium 9.1 9.0 Total Bilirubin 0.6 0.4 AST 27 29 ALT 11 11 Alkaline Phosphatase 53 50 Total Protein 7.1 7.0 Albumin 4.2 4.1 Levetiracetam Pending Discharge Plan Discharge Attending physician on discharge: Brian Adams Consulting providers: Atif Beckman; Ang Soria Discharging Clinician: Ang Soria Anticipated Discharge Date/Time: 04/21/25 13:42 Patient Disposition: Home Activity: as tolerated Diet: regular Discharge Instructions: Discharge disposition: Home Take medications as prescribed. You will be prescribed Keppra 500 mg to be taken twice daily Monitor blood pressures Take caution while standing, rising, or moving Change positions slowly taking a break between each position change If you standing feel dizzy sit back down and take a break Encouraged to continue with yearly vaccinations Return to the emergency department if you develop sudden shortness of breath, chest pain, nausea, vomiting, upset stomach or intractable diarrhea Return to the emergency department if you develop fever greater than 101.5 Follow-up with the primary care physician within 1-2 weeks Follow-up with neurology will in the next 3-4 weeks Thank you for choosing [facility] for your healthcare needs Patient Instructions: Antibiotic Form Patient Language: Russian Stand Alone Forms: General Discharge Information Follow-up/Referrals: [facility],Louise Harper [Other] Atif Beckman MD [Physician, Neurology] Discharge Medications: New levetiracetam 100 mg/mL Solution 500 mg BYMOUTH Q12HR Qty: 60 0RF Continued polyethylene glycol 3350 [ClearLax] 17 gram/dose powder 17 g PO DAILY PRN (Reason: constipation) lactulose PO DAILY Patient Comments: MOTHER STATES TAKES ACTILAX UNKOWN DOSAGE Date of admission: 04/19/25 22:35 Primary Care Provider: Yesi,Louise Harper Admitting Provider: Brian Adams Attending physician on admission: Brian Adams Condition: Stable Quality VTE Prophylaxis VTE prophylaxis: mechanical ordered
--- NOTE | 2025-04-21 14:39 | P.CONNEU_ITS ---
Assessment and Plan Assessment and plan (1) Seizure disorder: Code(s): G40.909 - Epilepsy, unspecified, not intractable, without status epilepticus Status: Acute Assessment and Plan: this will be consider 2nd spell of seizure per the history obtained from the mother. It appears fairly reliable. I agree the patient should be kept on her Keppra 500 mg twice a day and if he has any further spells to let me know. Glad to see him my office for follow-up. MRI of the brain shows increased size of the lateral ventricles without the 4th ventricle being enlarged. I believe this to be a static or arrested mild hydrocephalus. There does not appear to be any precipitating events such as head trauma or infection or sepsis of any kind. I have given my phone number to the patient's mother and advised her to let me know if the any other neurologic problems otherwise I will see him for follow-up in 2-3 months time. (2) Autism: Code(s): F84.0 - Autistic disorder Status: Acute (3) Foveal hypoplasia, optic nerve decussation defect, and anterior segment dysgenesis syndrome: Code(s): Q87.89 - Other specified congenital malformation syndromes, not elsewhere classified; Q11.2 - Microphthalmos; Q07.8 - Other specified congenital malformations of nervous system; Q13.89 - Other congenital malformations of anterior segment of eye Status: Acute (4) Legally blind: Code(s): H54.8 - Legal blindness, as defined in [place] Status: Acute Plan As discussed above I shall be glad to follow up in my office. 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 Patient lives with his parents. Had a seizure 2 years ago also at the time he was started on anticonvulsant however did not follow with Neurology at the time. According to the mother he she could not find any med except her on her type of insurance. The patient was eating dinner with the family and suddenly began to have choking spell and eyes rolling backward. That he coughed up frequently and began shaking and lost consciousness. It lasted for about 2 minutes prior to him becoming sleepy and the seizure activity stopped. Patient was postictal not answering and being confused until he arrived in the emergency room. At baseline the patient is blind and does not speak but does grunt and follow commands. In the emergency room his thought to be at baseline according to the mother. He also has had constipation problem which is longstanding and he has had a bad 1 for last 5-7 days and his mother is also wondering if that plays into the causation of seizures. Review of Systems 2 Review of Systems: Mother denies any recent febrile illness or head trauma. 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 he is disabled. Smoking status: Never smoker Alcohol intake: never Substance use: never Lack of Transportation: No Lack of Food: Never True Current Housing: I Have Housing Concerned About Future Housing: No Difficulty Paying Gas/Electric Bills: No Difficulty Paying for Meds: No Currently Unemployed: No Education: High School Diploma/GED Difficulty w/ Childcare or Family Care: No Spiritual care concerns: No Meds Home Medications and Allergies Home Medications ?Medication ?Instructions ?Recorded ?Confirmed ?Type polyethylene glycol 3350 17 17 g PO DAILY PRN constipa tion 04/19/25 04/19/25 History gram/dose oral powder (ClearLax) lactulose PO DAILY 04/20/25 History Allergies Allergy/AdvReac Type Severity Reaction Status Date / Time No Known Allergies Allergy Verified 04/19/25 23:40 Vital Signs Vital Signs - 24 hr 04/20/25 20:00 04/20/25 20:00 04/20/25 21:03 Temperature 97.7 F Pulse Rate 56 L 55 L Respiratory Rate 76 H Blood Pressure 97/50 L Pulse Oximetry 98 Oxygen Delivery Room Air 04/21/25 00:00 04/21/25 04:00 04/21/25 05:44 Temperature 97.8 F Pulse Rate 53 L 56 L 84 Respiratory Rate 17 Blood Pressure 81/42 L Pulse Oximetry 96 Oxygen Delivery 04/21/25 08:00 Temperature Pulse Rate 59 L Respiratory Rate Blood Pressure Pulse Oximetry Oxygen Delivery Exam 2 Narrative: The patient is unable to communicate or is not verbal. His appears to be grossly under developed. Able to cooperate for a neurological examination. There is no apparent facial asymmetry. The muscle tone on both upper lower limbs appears symmetric. Reflexes did not show any asymmetry. No involuntary movements are seen. Results Labs 04/21/25 07:38 04/21/25 07:38 Labs: Short CBC 04/21/25 Range/Units 07:38 WBC 4.6 (4.5-10.0) K/mm3 Hgb 12.4 L (14.0-18.0) g/dL Hct 37.5 L (42.0-52.0) % Plt Count 278 (150-375) k/mm3 [facility] 04/21/25 07:38 Sodium 137 Potassium 3.9 Chloride 103 Carbon Dioxide 22 BUN 14 Creatinine 0.87 Glucose 56 L* Calcium 9.1 Liver Function 04/21/25 Range/Units 07:38 Total Bilirubin 0.6 (0.2-1.3) mg/dL AST 27 (17-59) U/L ALT 11 (6-50) U/L Alkaline Phosphatase 53 (38-126) U/L Albumin 4.2 (3.5-5.1) g/dL
--- OUTSIDE RECORDS SUMMARY | 2025-04-23 16:48 | XMS_ITS | Encounter Summary ---
Author Organization [facility] Address [address] [place] [address] Care Team Providers Care Miter Operator Name Role Phone Kala Moran MD Primary Care Provider Unavailable Encounter Details Date Type Department Care Team (Late st Contact Info) Description 07/10/2004 Outpatient [facility] [place] [address] [place] [address] [place] [id number] Oxana Kapoor MD [address] [id number] Social History Tobacco Use Types Packs/Day Years Used Date Smoking Tobacco: Never Assessed Sex and Gender Information Value Date Recorded Sex Assigned at Not on file Legal Sex Male 4:33 AM [employer] Gender Identity Not on file Sexual Orientation Not on file documented as of this encounter Plan of Treatment Not on file documented as of this encounter Visit Diagnoses Not on filedocumented in this encounter Care Teams Miter Operator Relationship Specialty Start Date End Date Kala Moran MD PCP - General Family Practice 01/14/15 documented as of this encounter
--- OUTSIDE RECORDS SUMMARY | 2025-04-23 16:48 | XMS_ITS | Encounter Summary ---
Author Organization [facility] Address 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
--- OUTSIDE RECORDS SUMMARY | 2025-04-23 16:48 | XMS_ITS | Encounter Summary ---
Author Organization [facility] Address [address] [place] [address] Care Team Providers Care Sales Engagement Executive Name Role Phone Kala Moran MD Primary Care Provider Unavailable Encounter Details Date Type Department Care Team (Late st Contact Info) Description 12/08/2006 Outpatient Historical [facility] [place] [address] [facility] [place] [address] [place] [phone] Oxana Kapoor MD [address] [phone] Social History Tobacco Use Types Packs/Day Years Used Date Smoking Tobacco: Never Assessed Sex and Gender Information Value Date Recorded Sex Assigned at Not on file 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
--- OUTSIDE RECORDS SUMMARY | 2025-04-23 16:48 | XMS_ITS | Clinical Summary ---
Author Organization [facility] Address [address] [place] [address] Care Team Providers Care Fast Food Attendant Name Role Phone Lord Dennys MD, Josr Vega Primary Care Provider [phone] Source Comments [facility],non-owned Affiliates and Associated Physician Practices is amultiple site organization consisting of ambulatory clinics and hospital sitesin [place], [place], [place] and [place]. This disclosure is being madepursuant to the Care Everywhere program and may not contain all information available regarding this patient. 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 Gender Identity Not on file Sexual Orientation Not on file Plan of Treatment Health Maintenance Due Date Last Done Comments HIV SCREENING 02/17/2016 HPV VACCINE (1 - Male 3-dose series) 02/17/2016 HEPATITIS C SCREENING 02/12/2019 DTAP/TDAP/TD VACCINES (1 - Tdap) 02/17/2020 HEPATITIS B VACCINE (1 of 3 - 19+ 3-dose series) 02/17/2020 DEPRESSION SCREENING 05/31/2024 COVID-19 VACCINE ( - 2024-2 6 season) 2025 INFLUENZA VACCINE (#1) 2025 ZOSTER [...] age to complete this topic Care Teams Fast Food Attendant Relationship Specialty Start Date End Date Josr Saini Jr., MD PCP - General Family Medicine 05/17/13
--- OUTSIDE RECORDS SUMMARY | 2025-04-23 16:48 | XMS_ITS | Encounter Summary ---
Author Organization [facility] Address [address] [place] [address] Care Team Providers Care Lining Brusher Name Role Phone Kala Moran MD Primary Care Provider Unavailable Encounter Details Date Type Department Care Team (Late st Contact Info) Description 08/04/2004 Outpatient Historical [facility] [place] [address] [facility] [place] [address] [place] [phone] Oxana Kapoor MD [address] [phone] Social History Tobacco Use Types Packs/Day Years Used Date Smoking Tobacco: Never Assessed Sex and Gender Information Value Date Recorded Sex Assigned at Not on file 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
--- OUTSIDE RECORDS SUMMARY | 2025-04-23 16:48 | XMS_ITS | Encounter Summary ---
Author Organization [facility] Address 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
--- OUTSIDE RECORDS SUMMARY | 2025-04-23 16:48 | XMS_ITS | Encounter Summary ---
Author Organization [facility] Address 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
--- OUTSIDE RECORDS SUMMARY | 2025-04-23 16:48 | XMS_ITS | Clinical Summary ---
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
--- OUTSIDE RECORDS SUMMARY | 2025-04-23 16:48 | XMS_ITS | Encounter Summary ---
Author Organization [facility] Address [address] [place] [address] Care Team Providers Care Engagement Director Name Role Phone Kala Moran MD Primary Care Provider Unavailable Encounter Details Date Type Department Care Team (Late st Contact Info) Description 02/26/2005 Outpatient Historical [facility] [place] [address] [facility] [place] [address] [place] [phone] Oxana Kapoor MD [address] [phone] Social History Tobacco Use Types Packs/Day Years Used Date Smoking Tobacco: Never Assessed Sex and Gender Information Value Date Recorded Sex Assigned at Not on file 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
--- OUTSIDE RECORDS SUMMARY | 2025-04-23 16:48 | XMS_ITS | Encounter Summary ---
Author Organization [facility] Address 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 10/07/2004 4:10 PM CDT us Constant Voulgaropoulos CHEMISTRY ORDERABLES Fin al Result Performing Organization Address City/[facility] de Phone Number INTERFACE SYSTEM Refer to clinic/hospital department * CORTISOL LEVEL (10/07/2004 4:10 PM CDT) CORTISOL LEVEL 17.2 ug/dL INTER FACE SYSTEM Comment: Cortisol Reference Range: 7 - 10 AM: 6.2 - 19.4 ug/dL 4 - 8 PM: 2.3 - 12.3 ug/dL 10/07/2004 4:10 PM CDT us Constant Voulgaropoulos CHEMISTRY ORDERABLES Fin al Result Performing Organization Address City/[facility] Phone Number INTERFACE SYSTEM Refer to clinic/hospital department * TSH (10/07/2004 4:10 PM CDT) TSH 2.05 0.27 - 4.20 uU/mL INTERFACE SYSTEM 10/07/2004 4:10 PM CDT us Constant Voulgaropoulos CHEMISTRY ORDERABLES Fin al Result Performing Organization Address City/[facility] de Phone Number INTERFACE SYSTEM Refer to clinic/hospital department * T4 FREE (10/07/2004 4:10 PM CDT) T4 FREE 1.4 0.9 - 1.7 ng/dL INTERFACE SYSTEM 10/07/2004 4:10 PM CDT us Constant Voulgaropoulos CHEMISTRY ORDERABLES Fin al Result Performing Organization Address City/[facility] de Phone Number INTERFACE SYSTEM Refer [...] brain documented in this encounter Care Teams Vaccine Key Customer Leader Relationship Specialty Start Date End Date Kala Moran MD PCP - General Family Practice 01/14/15 documented as of this encounter
--- OUTSIDE RECORDS SUMMARY | 2025-04-23 16:48 | XMS_ITS | Encounter Summary ---
Author Organization [facility] Address 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
== END 2025-04-21 15:20 | disposition home or self-care (01) ==
LOC: ANHED 21:31 → ANH3MEDSUR 23:52
PROVIDERS: Emergency Medicine; Physician Assistant; Admitting Provider Internal Medicine; Emergency Provider Student in an Organized Health Care Education/Training Program; Visit Provider Internal Medicine
DX: G40.909 Epilepsy, unspecified, not intractable, without status epilepticus (principal); F84.0 Autistic disorder; Q04.4 Septo-optic dysplasia of brain; Q87.89 Other specified congenital malformation syndromes, not elsewhere classified; Q11.2 Microphthalmos; Q07.8 Other specified congenital malformations of nervous system; Q13.89 Other congenital malformations of anterior segment of eye; H54.8 Legal blindness, as defined in USA
CPT/HCPCS: 36415; 70450; 70551; 74177; 80053; 80177; 81003; 82948; 83605; 83735; 84443; 85025; 85610; 85730; 93005; 95816; 96365; 96376; 99285; A9270; G0378; G0379; J1953; J7120; Q9967